=== PATIENT | female | born 1955 | race Caucasian/White ===

== ENCOUNTER → 2018-05-15 | Outpatient (CLI) | payer BC ==
[~2018-05-15] VITALS: Ht 170.2 cm; Wt 59.0 kg
[~2018-05-15] MED LIST: B-125000 MC2 PO; B-6200 MG PO; BIEST PO; CALCIUM 600 +1 EAC1 PO; CITRACAL SOFT1 EACH PO; COQ-10100 MG PO; CVS GLUCOSAMIN PO; D3-5050000 UNIT PO; FISH OIL 1,001000 M2 PO; MOBIC15 MG PO; NEXIUM40 MG PO; NIACIN500 MG PO; PROGEST PO; SIMVASTATIN10 MG PO; [UNRECOGNIZED DRUG - OTHER] TOP
--- NOTE | ~2018-05-15 | HPC ---
[facility] [place] [address] PAIN MANAGEMENT CONSULTATION Name: AAMIR SANCHEZ Room #: REG LEE ANNThomas Mcdaniels.#: [id number] Admission: 05/15/18 Attend Phys: Martinez Davis MD Discharge: Date of : 57 Report #: [id number] THIS REPORT FOR: //name// CC: Gabrielle Davis DATE OF SERVICE: 05/15/2018 CHIEF COMPLAINT: Cervical pain with radiation in the left arm down to the hand, now resolved. 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 She is here today for a consultation only to discuss her ongoing neck pain and her low back issues. She does not need an injection we established that at the outset. She had some questions about the more recent pain and the appointment was to discuss pain mechanisms and long-term management and prognosis. She is very active 62-year-old female who enjoys exercise. Roughly 1 month ago, she was lifting some heavy weights, doing deltoid exercise and had a sudden onset of left-sided neck pain. The pain was quite severe when initially began, so bad that she could not turn her head from side to side with associated muscle spasm. The pain radiated into the left hand, although she cannot remember precisely if it followed the C6 or C7, C8 dermatomal distribution. She saw a chiropractor, who provided some gentle manipulation and she responded nicely after 2 treatments. The pain in her arm resolved. She continues to have some aching sensation in her neck, but it is quite a bit better. She has some chronic low back pain, but this is manageable. It does not radiate. She has no radicular symptoms whatsoever. MEDICATIONS: DHEA, bioidentical hormones, vitamin B12, vitamin D3, calcium carbonate, CoQ10, vitamin B6, glucosamine chondroitin, vitamin D3, niacin, fish oil, Nexium, Mobic and simvastatin. ALLERGIES: None. PAST MEDICAL HISTORY: Positive for gastroesophageal reflux disease. PAST SURGICAL HISTORY: in 1987, 1994; breast augmentation in 1997. SOCIAL HISTORY: She is , works in sales as a registered nurse. She has 2 daughters, twins who are dealing with ulcerative colitis. She does not smoke nor does she drink alcohol to excess, but enjoys a glass of wine 4-5 times a week. [address] [address] PAIN MANAGEMENT CONSULTATION Name: AAMIR SANCHEZ Room #: REG [facility] Gentry#: [id number] Admission: 05/15/18 Attend Phys: Martinez Davis MD Discharge: Date of : 57 Report #: [id number] REVIEW OF SYSTEMS: Positive for occasional headaches, occasional constipation, nocturia and the symptoms described in her history of present illness in her upper extremity. PHYSICAL EXAMINATION: A pleasant 62-year-old female who appears fit. Her blood pressure is 131/86, heart rate 60, and respirations 14. She is 5 feet 7 inches, 130 pounds with BMI of 20.4. She moves easily from sitting to standing position and ambulates without antalgic features. Examination of the neck reveals excellent range of motion with no exacerbation of discomfort or radicular symptoms. She has mild tenderness in the occiput. Examination of the chest is clear. Cardiac rhythm is regular. Examination of the spine reveals normal alignment. Mild tenderness. She has excellent flexion. We can put her palms almost on the floor without causing discomfort. Extension reproduces some pain in her midback, but it is mild at a level of 2-3. She has some pain with lateral movements, rotational and [id number] tilt. Sensation intact in lower extremities, no weakness is noted in the upper or lower extremities. RADIOLOGIC DATA: I was able to review myself the cervical spine x-rays, which show that she does have multilevel degenerative disease with severe degenerative disk at C4-C5 and moderate disease at C2-C3, C3-C4, C5-C6. There is spondylosis. There is more arthropathic change noted at C5-C6 where there is a grade 1 anterior spondylolisthesis. It narrows the spinal canal slightly. There is mild narrowing also at C2-C3, but there is ample spinal fluid around the spinal cord at all levels. The low lumbar spine films were not reviewed, but I did review the report there. It shows also multilevel degenerative changes described in detail both stenosis at several levels. She has grade 1 anterolisthesis of L4 on L5 and a slight retrolisthesis of L2 on L3. There is some bulging of disks, facet arthropathy, but fortunately, her pain in her low back is moderate. She has no radiculopathy. IMPRESSION: Degenerative changes throughout the cervical and lumbar spine with facet arthropathy is the most likely cause of underlying pain. I would not consider any injections at this point in time. PLAN: We discussed her current use of meloxicam. We spent some time reviewing the nonsteroidal anti-inflammatory group and its risks as well as benefits. She can use this on a p.r.n. basis to minimize her exposure. PPI has been taken every day in an effort to protect her stomach from her GERD, but I also related to her that there are now articles being posted about the potential downside risks of PPIs, which have their own set of side effects and long-term consequences, we must be careful with them as well. There is no free lunch. She should remain active with her daily exercise program using common sense. I [facility] [address] [place] [address] PAIN MANAGEMENT CONSULTATION Name: AAMIR SANCHEZ Room #: [facility] [id number] Admission: 05/15/18 Attend Phys: Martinez Davis MD Discharge: Date of : 57 Report #: [id number] will be happy to see her back if an injection seems warranted in the future. Generally, we perform injections for pain that is not resolved over a period of several weeks or pains that are consistent with radiculopathy. By: [id number] Martinez Davis MD /nt
[2018-05-15 09:19] VITALS: BP 131/86
== END ==
LOC: PAIN 07:44
DX: M47.896 Other spondylosis, lumbar region (principal); M47.892 Other spondylosis, cervical region